=== PATIENT | female | born 1950 | race Caucasian/White ===

== ENCOUNTER 2022-12-28 18:24 | Emergency (ER) | payer MEDICARE, OTHER, SELFPAY ==
--- NOTE | 2022-12-28 18:37 | XR_ITS ---
PROCEDURE INFORMATION: Exam: XR Left Foot Exam date and time: 12/28/2022 6:43 PM Age: 72 years old Clinical indication: Injury or trauma; Other: Dropped bed rail on left foot; Blunt trauma; Patient HX: Dropped a wood bedrail on left foot last . ; Additional info: Pain TECHNIQUE: Imaging protocol: Radiologic exam of the left foot. Views: 3 or more views. COMPARISON: No relevant prior studies available. FINDINGS: Bones/joints: Minimal enthesophyte plantar margin of the calcaneus at the site of attachment of the plantar aponeurosis. 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 Soft tissues: Normal. IMPRESSION: No evidence of acute osseous injury.
[2022-12-28 18:45] VITALS: BP 117/64; PULSE 61; RESP 20; TEMP 36.8; O2SAT 96; BMI 38.4
--- NOTE | 2022-12-28 18:50 | PC.NURSE ---
Pt went down to RAD
--- NOTE | 2022-12-28 18:51 | XR_ITS ---
PROCEDURE INFORMATION: Exam: XR Left Ankle Exam date and time: 12/28/2022 6:46 PM Age: 72 years old Clinical indication: Injury or trauma; Other: Dropped bed rail on left foot; Blunt trauma; Ankle; Patient HX: Dropped a wood bedrail on left foot last . ; Additional info: Pain TECHNIQUE: Imaging protocol: Radiologic exam of the left ankle. Views: 3 or more views. COMPARISON: CR XR FOOT LT MIN 3V 12/28/2022 6:43 PM FINDINGS: Bones/joints: Osteopenia. Minimal enthesophyte plantar margin of the calcaneus at the site of attachment of the plantar aponeurosis. Postoperative cortical deformity medial aspect 1st metatarsal head . Soft tissues: Mild diffuse soft tissue swelling most pronounced adjacent to the lateral malleolus. IMPRESSION: 1. No evidence of acute osseous injury. 2. Chronic postoperative cortical deformity medial aspect 1st metatarsal head.
--- NOTE | 2022-12-28 19:13 | EXP.UTC ---
Discharge Plan Disposition Patient Disposition: Home, Self-Care Condition: Good Prescriptions Prescriptions: New cephalexin 500 mg capsule 500 mg PO QID Qty: 40 0RF Referrals Follow up/Referrals: Jakob Ramirez DO [Primary Care Provider] - See instructions Nadira Mcgowan DPM [Staff Physician] - See instructions Activity Restrictions/Add. Instructions Additional Instructions/Restrictions: Rest the extremity, Wear the ki wrap for compression, Elevate the extremity as tolerated while you are resting. Take tylenol for pain. Follow up with Dr. Mcgowan (podiatry). I put in a referral but you need to call her office and schedule an appointment. Follow up with your regular doctor. GO TO THE ER FOR ANY WORSENING SYMPTOMS Clinical Impressions Clinical Impression: Crush injury of left foot, Contusion of foot, left Instructions Patient Instructions: Contusion, DI for Contusion, DI for Crush Injury Discharge ED Provider: Caleb Jennings [facility] General Stated complaint: AO 12/24 left foot injury Mode of Arrival: Ambulatory Source of Information: Patient Limitations: No Limitations Time Seen by Provider: 12/28/22 19:13 Description of Symptoms (Recalled from Triage Doc. by RN): hurt left foot. She dropped a bed rail on her foot. HEENT Symptoms (Recalled from RN notes): Yes Resp Symptoms (Recalled from RN notes): No Skin Symptoms (Recalled from RN notes): No MS Symptoms (Recalled from RN notes): No Functional Status (Recalled from RN notes): n/a History of Present Illness Provider Complaint: She states that on 12/24 she hurt left foot. She dropped a heavy bed rail across that foot. Since then she has had pain and swelling of the foot. Walking and bearing weight makes her pain worse. Related Data Previous Rx's Medication Instructions Recorded cephalexin 500 mg capsule 500 mg PO QID #40 caps 12/28/22 Allergies Allergy/AdvReac Type Severity Reaction Status Date / Time No Known Allergies Allergy Verified 12/28/22 19:06 Worker's Comp Is this a Worker's Comp case?: No [facility] Disclaimer: The information contained in this section may have been updated after the patient was seen, as this information can be updated by other users. Social History Smoking Status: Never smoker alcohol intake: never current occupational status: retired Travel in the last 8 weeks: None ROS Obtained: Yes All systems reviewed & no additional complaints except as documented Constitutional Constitutional: Denies chills and Denies fever(s) Eyes Eyes: Denies eye discharge ENT Ears, Nose, Mouth, and Throat: Denies dizziness, Denies otalgia and Denies sore throat Cardiovascular Cardiovascular: Denies chest pain Respiratory Respiratory: Denies shortness of breath, Denies chest congestion, Denies cough, Denies stridor and Denies wheezing Gastrointestinal Gastrointestingal: Denies nausea or vomiting Musculoskeletal Musculoskeletal: Reports as per HPI Integumentary/Breasts Skin/Breast: Denies redness, Denies rash and Denies wounds Neurologic Neurologic: Denies dizziness and Denies paresthesias Allergic/Immunologic Allergic/Immunologic: Denies wheezing Physical Exam General General appearance: alert and in no apparent distress Head Head exam: atraumatic, normocephalic and normal inspection Eye Eye exam: Present normal appearance, PERRL and EOMI ENT ENT exam: Present normal exam, normal oropharynx, mucous membranes moist, TM's normal bilaterally and normal external ear exam Neck Neck exam: Present normal inspection, full ROM and trachea midline; Absent meningismus or lymphadenopathy Chest Chest inspection: Present normal inspection and symmetric chest wall rise; Absent tenderness Respiratory Respiratory exam: Present normal lung sounds bilaterally; Absent respiratory distress Cardiovascular Cardiovascular exam: Present regular rate and normal rhythm; Absent
[2022-12-28 19:41] VITALS: BP 117/64; PULSE 61; RESP 20; TEMP 36.8; O2SAT 96
== END 2022-12-28 19:41 | disposition home or self-care (01) ==
PROVIDERS: Emergency Provider Nurse Practitioner Family; PCP Family Medicine
DX: S97.82XA Crushing injury of left foot, initial encounter (principal); S90.32XA Contusion of left foot, initial encounter; W23.2XXA Caught, crushed, jammed or pinched between a moving and stationary object, initial encounter
CPT/HCPCS: 73610; 73630; 99204; 99212; G0463